=== PATIENT | male | born 1950 | race Caucasian/White ===

== ENCOUNTER → 2024-12-20 | Outpatient (CLI) | payer MEDICARE, SELFPAY ==
--- NOTE | 2024-12-20 17:16 | RAD_ITS ---
PROCEDURE: CHEST PA AND LATERAL 12/20/2024 REASON FOR EXAM: DYSPNEA TECHNIQUE: Frontal and lateral views of the chest. COMPARISON: None FINDINGS: Hardware: None Heart: The heart size is normal. Mediastinum: The mediastinal contour is unremarkable. Lungs: Subtle patchy right upper lung airspace opacities, concerning for infiltrates. No pneumothorax. Bones: Degenerative changes are identified within the thoracic spine. RAD/Chest PA and Lateral IMPRESSION: Subtle right upper lung airspace opacities, concerning for infiltrates. Follow -up for interval resolution is recommended. Reading Location: [facility]
== END | disposition home or self-care (01) ==
PROVIDERS: PCP Family Medicine; Referring Provider Internal Medicine Pulmonary Disease; Visit Provider Internal Medicine Pulmonary Disease
DX: R06.00 Dyspnea, unspecified (principal)
CPT/HCPCS: 71046

== ENCOUNTER → 2025-01-07 | Outpatient (CLI) | payer MEDICARE, SELFPAY ==
--- NOTE | 2025-01-07 10:00 | RAD_ITS ---
PROCEDURE: FLUOROSCOPY 1 HR OR LESS 01/07/2025 REASON FOR EXAM: Shortness of breath when lying down; symptoms began May. Previous smoker, quit 26 years ago.. TECHNIQUE: Standing AP view(s) of the thoracic and lumbar spine. COMPARISON: None. RAD/Fluoroscopy 1 Hr or Less IMPRESSION: A breathing and sniff test was performed under fluoroscopy, showing normal sydni on of the left hemidiaphragm. Paradoxical motion of the right hemidiaphragm was seen on the sniff test, sugge sting phrenic nerve pathology. Reading Location: [place] [id number]
== END | disposition home or self-care (01) ==
LOC: RAD 09:34
PROVIDERS: PCP Family Medicine; Referring Provider Internal Medicine Pulmonary Disease; Visit Provider Internal Medicine Pulmonary Disease
DX: R06.00 Dyspnea, unspecified (principal)
CPT/HCPCS: 76000

== ENCOUNTER → 2025-01-31 | Outpatient (CLI) | payer MEDICARE, SELFPAY ==
--- NOTE | 2025-01-31 09:35 | CT_ITS ---
EXAM: CT Chest With Intravenous Contrast CLINICAL INDICATION: DYSPNEA TECHNIQUE: Axial computed tomography images of the chest with intravenous contrast. This CT exam was performed using one or more of the following dose reduction techniques: automated exposure control, adjustment of the mA and/or kV according to patient size, and/or use of iterative reconstruction technique. COMPARISON: No relevant prior studies available. FINDINGS: LUNGS AND PLEURAL SPACES: Lung emphysema with multiple pulmonary nodules of the right upper lobe largest measuring up to 1.5 cm. Primary neoplastic process or metastasis can not be excluded. No consolidation. No significant effusion. No pneumothorax. HEART: Unremarkable. No cardiomegaly. No significant pericardial effusion. No significant coronary artery calcifications. BONES/JOINTS: Unremarkable. No acute fracture. SOFT TISSUES: Unremarkable. VASCULATURE: Scattered calcified atherosclerotic disease of aorta. No thoracic aortic aneurysm. LYMPH NODES: Right perihilar lymphadenopathy measuring up to 2.8 cm. Metastasis can not be excluded. CT/Chest WITH Contrast IMPRESSION: 1. Right perihilar lymphadenopathy measuring up to 2.8 cm. Metastasis can not be excluded. 2. Lung emphysema with multiple pulmonary nodules of the right upper lobe larg est measuring up to 1.5 cm. Primary neoplastic process or metastasis can not be excluded. Reading Location: [id number]
== END | disposition home or self-care (01) ==
LOC: CT 09:32
PROVIDERS: PCP Family Medicine; Referring Provider Internal Medicine Pulmonary Disease; Visit Provider Internal Medicine Pulmonary Disease
DX: R06.00 Dyspnea, unspecified (principal)
CPT/HCPCS: 71260; Q9967

== ENCOUNTER → 2025-02-19 | Outpatient (CLI) | payer MEDICARE, SELFPAY ==
--- NOTE | 2025-02-19 11:30 | PET_ITS ---
PROCEDURE: PET/CT TUMOR BASE -THIGH INIT 02/19/2025 REASON FOR EXAM: 75 y/o M with SOLITARY PULMONARY NODULE TECHNIQUE: After intravenous injection of 13.4 millicuries of FDG and a standard uptake period, a noncontrast CT scan, followed by a PET scan were acquired along the length of the body from the base of the skull to the mid thighs. The noncontrast helical CT imaging was performed without breath hold, for attenuation correction of PET images and anatomic correlation, but not for primary interpretation, as it is not of the standard diagnostic quality. Images were reviewed in the axial, coronal and sagittal planes. RADIATION DOSE SUMMARY: Effective Dose: Approximately 7 mSv for a standard whole-body PET scan Organ Doses: Varies by organ, with higher doses typically to the bladder, liver, and brain CTDI: 7.88 mGy. DLP: 738.59 mGy cm COMPARISON: COMPARISON FROM CT, PET OR OTHER PERTINENT EXAMS: None. FINDINGS: Physiologic uptake: There may be expected metabolic uptake within the brain, tongue and floor of the mouth and larynx/vocal cords, heart, brandon (many normal individuals have hilar uptake in less than 3 nodes with mildly avid hilar nodes less than 2.7 SUV), liver and spleen, system, and GI tract and symmetric muscle uptake. FDG AVID AND NON-AVID LESIONS. Reported avid SUV values (g/mL*) are maximum SUV. Head and neck: There is a normal distribution of FDG activity in the visualized brain parenchyma. There is calcific vascular disease of the intracranial portion of both internal carotid arteries. There is calcific vascular disease of both carotid bifurcations. There is normal uptake within the soft tissues of the neck and glandular structures. There is no hypermetabolic lymphadenopathy. Chest: There is a 16 x 7 mm soft tissue density nodule in the upper lobe of the right lung, max SUV 1.3. There is an additional soft tissue density nodule in the upper lobe of the right lung not demonstrating significant FDG activity. There is a central mass on the right, just at and anterior to the hilum, measuring 3.9 x 2.6 cm, demonstrating hypermetabolic activity, max SUV 13.0. There are no pleural effusions. The heart size is normal. There is a small pericardial effusion. There is calcific vascular disease of the thoracic aorta and coronary arteries. There is enlarged hypermetabolic right paratracheal lymph node measuring 2.3 x 1.6 cm, max SUV 12.2. There are numerous benign calcified mediastinal lymph nodes. Abdomen and pelvis: There are benign calcified splenic and hepatic granulomas. There is calcific vascular disease of the abdominal aorta. The prostate gland measures 6.7 cm in transverse dimension. There is diffuse activity in the prostate gland not felt to be clinically significant. There is sigmoid diverticulosis without diverticulitis. There is a normal distribution of FDG activity within the gastrointestinal and genitourinary tract. There is no hypermetabolic lymphadenopathy identified. Musculoskeletal: There are no suspicious hypermetabolic osteolytic or osteosclerotic lesions. There is skeletal muscle activity in both shoulder regions, the base of the right neck, and in the gluteal muscles bilaterally. Uptake time: 60 minutes. Hepatic blood pool: Max SUV, 2.6 Blood glucose: 111 BMI: 25.3 PET/PET/CT Tumor Base -Thigh Init IMPRESSION: 1. Central mass on the right demonstrating hypermetabolic activity consistent with a primary bronchogenic carcinoma. 2. There is a hypermetabolic right paratracheal lymph node consistent with met astatic disease. 3. There are no other foci of abnormal FDG activity to suggest neoplastic dise ase. 4. Prostatomegaly. 5. Other findings as noted. Reading Location: [id number]
== END | disposition home or self-care (01) ==
PROVIDERS: PCP Family Medicine; Referring Provider Internal Medicine Pulmonary Disease; Visit Provider Internal Medicine Pulmonary Disease
DX: R22.2 Localized swelling, mass and lump, trunk (principal)
CPT/HCPCS: 78815; A9552